=== PATIENT | male | born 1965 | race Caucasian/White ===

== ENCOUNTER 2018-07-16 22:51 | Emergency (ER) | payer OTHER ==
[~2018-07-16] VITALS: Ht 172.7 cm; Wt 80.3 kg
[2018-07-17] MEDS ORDERED: NORCO 5-325 TA1 EACH PO (01:43)
== END 2018-07-17 01:53 | disposition home or self-care (01) ==
LOC: ED 22:51
PROC: 0RSLXZZ Reposition Right Elbow Joint, External Approach (ICD-10-PCS; principal; 2018-07-16)
DX: S52.501A Unspecified fracture of the lower end of right radius, initial encounter for closed fracture (principal); S52.001A Unspecified fracture of upper end of right ulna, initial encounter for closed fracture; S53.004A Unspecified dislocation of right radial head, initial encounter; W10.9XXA Fall (on) (from) unspecified stairs and steps, initial encounter
CPT/HCPCS: 24600; 73080; 73200; 99283; J2270; J2405; J3010; J7030